=== PATIENT | female | born 1995 | race African-American/Black ===

== ENCOUNTER 2017-10-30 00:14 | Emergency (ER) | payer OTHER ==
[~2017-10-30] VITALS: Ht 172.7 cm; Wt 76.5 kg
[~2017-10-30 00:14] MED LIST: ACIDOPHILUS LA1 EAC1 PO; DEBROX15 ML BOTH EARS; KEFLEX500 MG PO; MACROBID100 MG PO; MILK OF MAGN PO; MOTRIN600 MG PO; MOTRIN800 MG PO; PYRIDIUM100 MG PO; PYRIDIUM200 MG PO; ULTRAM50 MG PO; ZOFRAN ODT8 MG PO
[2017-10-30 00:23] VITALS: BP 00/00
== END 2017-10-30 01:08 | disposition left against medical advice (07) ==
LOC: EME 00:14
DX: Z53.21 Procedure and treatment not carried out due to patient leaving prior to being seen by health care provider (principal)

== ENCOUNTER 2018-02-07 17:59 | Emergency (ER) | payer OTHER ==
[~2018-02-07] VITALS: Ht 172.7 cm; Wt 74.2 kg
[2018-02-07 20:20] VITALS: BP 119/70
[2018-02-07] MEDS ORDERED: ESCITALOPRAM OX10 MG PO (20:23)
== END 2018-02-07 20:24 | disposition home or self-care (01) ==
LOC: EME 17:59
DX: F41.1 Generalized anxiety disorder (principal)
CPT/HCPCS: 99281; 99284